=== PATIENT | female | born 1990 | race Two or more races ===

== ENCOUNTER 2017-06-21 22:56 | Emergency (ER) | payer OTHER ==
[2017-06-21 23:04] VITALS: BMI 30.5
--- NOTE | 2017-06-22 02:06 | PDOC ---
History of Present Illness - General History Source: Patient Exam Limitations: No Limitations - History of Present Illness Initial Comments: 06/22/17 02:13 The patient is a 27 year old female with significant past medical history of prior ectopic who presents to the ED for less than 24 hours of epigastric and right upper quadrant pain. Patient describes her pain as nonradiating, sharp colicky, and intermittent every 30 minutes. States she developed pain around 4- 5am this morning. Patient reports associated chills, decreased appetite and nausea, but no vomiting. No change in stool. The patient denies fever, cough, SOB, chest pain, and palpitations. The patient denies dysuria, hematuria, urgency, and frequency. Allergies: NKDA Social History: No alcohol, tobacco, or drug use reported. Past Surgical History: oophorectomy PCP: n/a <Joanne Garcia - Last Filed: 06/22/17 06:59> - General History Source: Patient Exam Limitations: No Limitations <Indy Rolon - Last Filed: 06/22/17 07:10> - General Chief Complaint: Pain Stated Complaint: STOMACH PAIN Past History <Joanne Garcia - Last Filed: 06/22/17 06:59> - Past Medical History Other medical history: denies - Reproductive History (#): 2 Para: 0 Therapeutic (s) & number: No Spontaneous : 1 - Psycho/Social/Smoking Cessation Hx Anxiety: No Suicidal Ideation: No Smoking History: Never smoked Have you smoked in the past 12 months: No Hx Alcohol Use: Yes (social) Substance Use Type: Alcohol <Indy Rolon - Last Filed: 06/22/17 07:10> - Past Medical History Allergies/Adverse Reactions: Allergies Allergy/AdvReac Type Severity Reaction Status Date / Time No Known Allergies Allergy Verified 06/21/17 23:03 Home Medications: Ambulatory Orders Ciprofloxacin [Cipro -] 500 mg PO Q12H #14 tablet 06/22/17 Metronidazole [Flagyl -] 500 mg PO BID #14 tablet 06/22/17 Abd/GI Specific PMHX - Complaint Specific PMHX Diverticulitis: No Gall Bladder Disease: No GERD: No <Indy Rolon - Last Filed: 06/22/17 07:10> Review of Systems - Review of Systems Able to Perform ROS?: Yes Comments:: 06/22/17 02:13 GENERAL/CONSTITUTIONAL: +decreased appetite, chills No fever. No weakness. HEAD, EYES, EARS, NOSE AND THROAT: No change in vision. No ear pain or discharge. No sore throat. CARDIOVASCULAR: No chest pain or shortness of breath. RESPIRATORY: No cough, wheezing, or hemoptysis. GASTROINTESTINAL: +right upper quadrant pain, epigastric pain, nausea No vomiting, diarrhea or constipation. GENITOURINARY: No dysuria, frequency, or change in urination. MUSCULOSKELETAL: No joint or muscle swelling or pain. No neck or back pain. SKIN: No rash NEUROLOGIC: No headache, vertigo, loss of consciousness, or change in strength/ sensation. ENDOCRINE: No increased thirst. No abnormal weight change. HEMATOLOGIC/LYMPHATIC: No anemia, easy bleeding, or history of blood clots. ALLERGIC/IMMUNOLOGIC: No hives or skin allergy. <JoseJoanne - Last Filed: 06/22/17 06:59> *Physical Exam - Vital Signs Last Vital Signs Temp Pulse Resp BP Pulse Ox 98.9 F 114 H 20 138/83 99 06/21/17 23:01 06/21/17 23:01 06/21/17 23:01 06/21/17 23:01 06/21/17 23:01 - Physical Exam Comments: 06/22/17 02:14 GENERAL: Awake, alert, and fully oriented, in no acute distress HEAD: No signs of trauma EYES: PERRLA, EOMI, sclera anicteric, conjunctiva clear ENT: Auricles normal inspection, hearing grossly normal, nares patent, oropharynx clear without exudates. Moist mucosa NECK: Normal ROM, supple, no lymphadenopathy, JVD, or masses LUNGS: Breath sounds equal, clear to auscultation bilaterally. No wheezes, and no crackles HEART: Regular rate and rhythm, normal S1 and S2, no murmurs, rubs or gallops ABDOMEN: Soft, right upper quadrant tenderness, epigastric tenderness, normoactive bowel sounds. No guarding, no rebound. No masses EXTREMITIES: Normal range of motion, no edema. No clubbing or cyanosis. No cords, erythema, or tenderness NEUROLOGICAL: Cranial nerves II through XII grossly intact. Normal speech, normal gait SKIN: Warm, Dry, normal turgor, no rashes or lesions noted. <Joanne Garcia - Last Filed: 06/22/17 06:59> - Vital Signs Last Vital Signs Temp Pulse Resp BP Pulse Ox 98.9 F 114 H 20 138/83 99 06/21/17 23:01 06/21/17 23:01 06/21/17 23:01 06/21/17 23:01 06/21/17 23:01 <RosalbamanuelIndy - Last Filed: 06/22/17 07:10> Procedures - Bedside Ultrasound Bedside Ultrasound: Gallbladder Other: see [facility] for report <Indy Rolon - Last Filed: 06/22/17 07:10> ED Treatment Course - LABORATORY CBC & Chemistry Diagram: 06/22/17 02:25 06/22/17 02:25 - RADIOLOGY Radiograph Interpretation: 06/22/17 06:59 HISTORY:Abdominal pain and vomiting Reviewed by Imaging irrigation engineer: FINDINGS: Abdomen Liver: Normal Spleen: Normal Pancreas: Normal Gallbladder: Normal Stomach: Normal Small bowel: Normal Large bowel: There is segmental thickening of the cecum and proximal colon. Appendix: Normal Adrenals:Normal Kidneys: Normal Vascular: Normal Lymphatic: There are enlarged lymph nodes in the right lower quadrant mesenteric. The largest measures 1.5x 1.0 cm Peritoneal: No free peritoneal air or fluid Pelvis: Uterus: normal Rectum: Normal Bladder: Normal The inferior thorax: Normal General: Skeletal: Normal Abdominal wall: Normal IMPRESSION: Proximal colonic thickening suggesting colitis. <Joanne Garcia - Last Filed: 06/22/17 06:59> - LABORATORY CBC & Chemistry Diagram: 06/22/17 02:25 06/22/17 02:25 <RosalbamanuelIndy - Last Filed: 06/22/17 07:10> Medical Decision Making - Medical Decision Making 06/22/17 02:04 27 yo F with epigastric pain, started 4 am. no mod factors. sharp colicky. hasn' t been able to eat due to pain. no f, reports chills. no radiation. nourinary complaints. no change to stool. on exam awake alert lungs clear. heart rrr nomrg. abd soft, ruq, epigastric ttp. no rebound no guarding. no cva tenderness. ext wwp no edema. no calf tenderness. plan : differential pancreatitis, biliary colic, gastritis, gerd. plan labs antacid. bedside us. 06/22/17 04:35 focused ED ultrasound gallbladdder, indication : epigastric pain. gallbladder scanned in two planes with curvilinear probe. no wall thickening or edema. negative sonographic vega's. no pericholecystic fluid. contracted gallbladder noted. cbd normal at 2mm. wall measured 3.9 mm, contracted. impression: contracted gallbladder. rafa/ sonny 06/22/17 06:04 <Indy Rolon - Last Filed: 06/22/17 07:10> *DC/Admit/Observation/Transfer - Attestations Scribe Attestion: 06/22/17 02:15 Documentation prepared by Joanne Garcia, acting as director medical safety for Indy Rolon MD <Joanne Garcia - Last Filed: 06/22/17 06:59> <Indy Rolon - Last Filed: 06/22/17 07:10> Diagnosis at time of Disposition: Colitis - Discharge Dispostion Disposition: HOME Condition at time of disposition: Improved - Prescriptions Prescriptions: Ciprofloxacin [Cipro -] 500 mg PO Q12H #14 tablet Metronidazole [Flagyl -] 500 mg PO BID #14 tablet - Referrals Referrals: STAFF,NOT ON [Primary Care Provider] - Kai Oliver DO [Staff Physician] - - Patient Instructions Printed Discharge Instructions: DI for Colitis Additional Instructions: you have inflammation of your colon on ct scan. take ciprofloxacin 500 mg twice daily x 7 days. you should also take flagyl 500 mg twice daily x 7 dyas. you should also follow up with a oil distributor. call Dr Ashre ( number attached ) to schedule. return for severe worsening pain fever or any concerns.
[2017-06-22] MEDS ORDERED: MAG HYDROX/AL HYDROX/SIMETH 30 ML UNIT-DOSE CUP PO ONE (02:07)
[2017-06-22] MEDS ORDERED: FAMOTIDINE 20 MG/50 ML IVPB 50 ML IVPB ONE ×2 (02:07→02:26)
[2017-06-22 02:22] LABS: URINE APPEARANCE SLCLOUDY; URINE BILIRUBIN NEGATIVE (NEGATIVE); URINE BLOOD 1+ (NEGATIVE); URINE COLOR AMBER; URINE GLUCOSE (UA) NEGATIVE (NEGATIVE); URINE KETONE NEGATIVE (NEGATIVE); URINE LEUK ESTERASE TRACE (NEGATIVE); URINE NITRITE NEGATIVE (NEGATIVE)
[2017-06-22] MEDS ORDERED: MAG HYDROX/AL HYDROX/SIMETH 30 ML UNIT-DOSE CUP ONE (02:26)
[2017-06-22 02:27] LABS: URINE PROTEIN 1+ (NEGATIVE)
[2017-06-22 02:28] LABS: URINE MUCUS MANY; URINE RBC 4 /hpf (0-3); URINE WBC 6 /hpf (3-5)
[2017-06-22 02:33] LABS: BASOPHIL 0.4 % (0-2.0); EOSINOPHIL 0.8 % (0-4.5); MCH 29.7 pg (25.7-33.7); MCHC 33.9 g/dl (32.0-36.0); MEAN CELL VOLUME 87.8 fl (80-96); MEAN PLT VOLUME 7.8 fl (7.5-11.1); NEUTROPHILS 65.6 % (42.8-82.8); PLATELET COUNT 244 K/MM3 (134-434); RDW 14.3 % (11.6-15.6)
[2017-06-22 05:42] VITALS: TEMP 98.2
[2017-06-22 06:06] LABS: ALBUMIN 3.7 g/dl (3.4-5.0); ANION GAP 8 (8-16); BILIRUBIN,TOTAL 0.4 mg/dL (0.2-1.0); CALCIUM 8.8 mg/dL (8.5-10.1); CO2 26 mmol/L (21-32); CREATININE 0.7 mg/dL (0.55-1.02); GLUCOSE,RANDOM 105 mg/dL (74-106); SGOT/AST 43 U/L (15-37); SGPT/ALT 40 U/L (12-78); TOT PROT 7.9 g/dl (6.4-8.2)
[2017-06-22 06:07] LABS: ALK PHOS 76 U/L (45-117)
[2017-06-22] MEDS ORDERED: CIPROFLOXACIN 500 MG TABLET (RESTRICTED TO ID) PO ONE (07:04)
[2017-06-22] MEDS ORDERED: metroNIDAZOLE 250 MG TABLET PO ONE (07:04)
[2017-06-22] MEDS ORDERED: metroNIDAZOLE 250 MG TABLET ONE (07:31)
[2017-06-22 07:54] VITALS: BP 138/92; PULSE 72
== END 2017-06-22 07:50 | disposition home or self-care (01) ==
LOC: JER 22:56
PROC: 3E033GC Introduction of Other Therapeutic Substance into Peripheral Vein, Percutaneous Approach (ICD-10-PCS; principal; 2017-06-21)
DX: K52.9 Noninfective gastroenteritis and colitis, unspecified (principal)
CPT/HCPCS: 36415; 74177-TC; 80053; 81003; 81015; 83690; 84703; 85025; 96365; 99282-25; Q9967

== ENCOUNTER 2018-09-02 07:39 | Emergency (ER) | payer OTHER ==
--- NOTE | 2018-09-02 07:57 | PDOC ---
History of Present Illness - General History Source: Patient Exam Limitations: No Limitations - History of Present Illness Initial Comments: 09/02/18 09:36 The patient is a 28 yo F, G3A2, with a significant past medical history of 1 ectopic and 1 miscarriage, who presents to the ED with light vaginal spotting this morning with a positive at-home test. She states she is about 7 weeks pregnanyt with her LMP being 07/09/18. She reports some mild associated pelvic cramping which she describes as "period cramps." She reportedly passed one red blood clot vaginally while in the ED. She denies any increased pain. She denies radiation of pain. 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 She denies fevers, chills, n/v/d. She denies chest pain, headache, dizziness, lightheadedness, or fatigue. She denies changes in urination. She denies any recent illnesses or traumas. Allergies: NKDA <Diya Rodriguez - Last Filed: 09/02/18 12:04> - History of Present Illness Initial Comments: 09/02/18 08:42 28 G3A2, 1 ectopic, 1 miscarrige, 7 wks , just by home test. <Seven Nair - Last Filed: 09/02/18 12:16> - General Chief Complaint: Vaginal Bleeding Stated Complaint: 7 WKS,BLEEDING Time Seen by Provider: 09/02/18 07:56 Past History <Diya Rodriguez - Last Filed: 09/02/18 12:04> - Past Medical History COPD: No - Reproductive History (#): 2 Para: 0 Therapeutic (s) & number: No Spontaneous : 1 - Immunization History Immunization Up to Date: Yes - Suicide/Smoking/Psychosocial Hx Smoking History: Never smoked Have you smoked in the past 12 months: No Hx Alcohol Use: No Drug/Substance Use Hx: No Substance Use Type: Alcohol <Seven Nair - Last Filed: 09/02/18 12:16> - Past Medical History Allergies/Adverse Reactions: Allergies Allergy/AdvReac Type Severity Reaction Status Date / Time No Known Allergies Allergy Verified 09/02/18 07:49 Home Medications: Ambulatory Orders Prenat 115/Iron Fum/Folic/Dss [ 19 Tablet] 1 each PO DAILY 09/02/18 Review of Systems - Review of Systems Able to Perform ROS?: Yes Comments:: 09/02/18 09:40 Constitutional: No recent illness; no fever ENT: No sore throat Cardiovascular: No palpitations; no chest pain Pulmonary: No cough; no trouble breathing Gastrointestinal: No nausea; no vomiting; no diarrhea Genitourinary: No urinary problems; no hematuria Reproductive: (+) vaginal bleeding in . mild pelvic cramping. Skin: No rash Lymph system: No swollen glands Musculoskeletal: No joint swelling Neurological: No weakness; oo numbness; No Headache; no vertigo; no lightheadedness Psychiatric:No anxiety; no depression A complete review of 10 out of 10 review of systems is taken and is negative apart from what is previously mentioned below and in the HPI. <Diya Rodriguez - Last Filed: 09/02/18 12:04> *Physical Exam - Vital Signs Last Vital Signs Temp Pulse Resp BP Pulse Ox 98.1 F 87 16 135/86 100 09/02/18 07:50 09/02/18 07:50 09/02/18 07:50 09/02/18 07:50 09/02/18 07:50 - Physical Exam Comments: 09/02/18 09:40 Vitals: Triage vital signs reviewed General Appearance: No acute distress, well nourished, well developed Head: Atraumatic Eyes: Pupils equal reactive round, extraocular movement intact Neck: Supple; No nuchal rigidity Chest Wall: Nontender Cardiac: Regular rate and rhythm, no murmurs, no rubs, no gallops Lungs: Clear to auscultation bilateral, good air movement bilaterally Abdomen: Soft, nondistended, normal bowel sounds, nontender to palpation Pelvic: No CMT. No adnexal tenderness. blood in vaginal vault. Extremities: Full range of motion to all extremities, no cyanosis, clubbing, or edema Skin: Warm and dry, no rashes or lesions, no rash, no petechiae Neuro: AOX3; Cranial Nerves 2-12 grossly intact, Strength intact to all extremities, Sensation intact to all extremities, gait normal Psych: Normal mood, normal affect <Diya Rodriguez - Last Filed: 09/02/18 12:04> - Vital Signs Last Vital Signs Temp Pulse Resp BP Pulse Ox 98.1 F 87 16 135/86 100 09/02/18 07:50 09/02/18 07:50 09/02/18 07:50 09/02/18 07:50 09/02/18 07:50 <Seven Nair - Last Filed: 09/02/18 12:16> ED Treatment Course - LABORATORY CBC & Chemistry Diagram: 09/02/18 08:31 09/02/18 08:31 - ADDITIONAL ORDERS Additional order review: Laboratory Results 09/02/18 08:31 Sodium 137 Potassium 4.1 Chloride 102 Carbon Dioxide 25 Anion Gap 9 BUN 8 Creatinine 0.7 Creat Clearance w eGFR > 60 Random Glucose 125 H Calcium 9.0 Total Bilirubin 0.5 AST 74 H ALT 64 H Alkaline Phosphatase 65 Total Protein 7.8 Albumin 3.7 09/02/18 08:31 RBC 4.14 MCV 90.5 MCHC 35.9 RDW 13.5 MPV 7.6 Neutrophils % 68.6 Lymphocytes % 25.2 Monocytes % 4.5 Eosinophils % 1.2 Basophils % 0.5 - RADIOLOGY Radiograph Interpretation: EXAM#: TYPE/EXAM: RESULT: [id number] US/TRANSVAGINAL ULTRASOUND US Rule out ectopic . Pelvis ultrasound, transvesical and transvaginal LMP is 07/09/2028 The uterus measures 8.6 x 4.6 cm in sagittal and AP dimension. Endometrial stripe measures 9.5 mm in thickness. There is a small intrauterine gestational sac like structure seen at the junction of the lower uterine segment and the cervical canal measuring with a questionable pole seen compatible with in progress. The crown-rump length measures 7 mm compatible with 6 weeks 4 days of gestation. Gestational sac measured 1.7 x 0.7 x 0.6 cm. The right ovary measures 3.7 x 2.6 cm and appears unremarkable with normal vascular flow, arterial and venous. Normal-appearing left ovary measuring 3.3 x 2.7 cm with a simple cyst/dominant follicle/corpus luteum cyst measuring 1.2 x 1.1 cm and normal vascular flow, arterial and venous No gross adnexal mass is identified. There is no free fluid in the cul-de-sac. IMPRESSION: Intrauterine gestational sac like structure in the lower uterine segment and cervical canal measuring 1.7 x 0.7 x 0.6 cm with a possible pole consistent with in progress. Worden-rump length of the possible pole is compatible with 6 weeks 4 days of gestation. heart activity of the possible pole was not evaluated on this exam. Both ovaries appear unremarkable. Correlate clinically and close follow-up ultrasound is recommended. Reported By: Bhavya James MD 09/02/18 1200 <Diya Rodriguez - Last Filed: 09/02/18 12:04> - LABORATORY CBC & Chemistry Diagram: 09/02/18 08:31 09/02/18 08:31 <Seven Nair - Last Filed: 09/02/18 12:16> Medical Decision Making - Medical Decision Making 09/02/18 12:15 First trimester bleeding Ultrasound labs type and screen ordered On ultrasound intrauterine gestational sac like structure in the lower uterine segment cervical canal with possible pole consistent with in progress Patient is Rh+. Most likely diagnosis is miscarriage at this time we'll have patient follow up with her LOCAL COMBINATION TRUCK DRIVER in 1-2 days or return to the emergency department in 1-2 days. <Seven Nair - Last Filed: 09/02/18 12:16> *DC/Admit/Observation/Transfer - Attestations Scribe Attestion: 09/02/18 09:41 Documentation prepared by Diya Rodriguez, acting as medical insurance clerk for Seven Nair MD <Diya Rodriguez - Last Filed: 09/02/18 12:04> - Discharge Dispostion Decision to Admit order: No <Seven Nair - Last Filed: 09/02/18 12:16> Diagnosis at time of Disposition: Spontaneous - Discharge Dispostion Disposition: HOME Condition at time of disposition: Good - Referrals Referrals: Anuj Daniels MD [Staff Physician] - - Patient Instructions Printed Discharge Instructions: Dealing With Miscarriage, Miscarriage Additional Instructions: Follow-up with your LOCAL COMBINATION TRUCK DRIVER or Dr. Daniels in 2 days. Return to the emergency department for any severe heavy bleeding, severe abdominal pain or for any concerns.
[2018-09-02 07:59] VITALS: BMI 34.0
[2018-09-02 08:44] LABS: BASO % 0.5 % (0-2.0); EOS % 1.2 % (0-4.5); HEMATOCRIT 37.5 % (32.4-45.2); HEMOGLOBIN 13.4 GM/dL (10.7-15.3); LYMPH % 25.2 % (8-40); MCH 32.4 pg (25.7-33.7); MCHC 35.9 g/dl (32.0-36.0); MEAN CELL VOLUME 90.5 fl (80-96); MEAN PLT VOLUME 7.6 fl (7.5-11.1); MONO % 4.5 % (3.8-10.2); NEUT % 68.6 % (42.8-82.8); PLATELET COUNT 241 K/MM3 (134-434); RBC 4.14 M/mm3 (3.60-5.2); RDW 13.5 % (11.6-15.6); WHITE BLOOD COUNT 7.6 K/mm3 (4.0-10.0)
[2018-09-02 09:35] LABS: ALBUMIN 3.7 g/dl (3.4-5.0); ALK PHOS 65 U/L (45-117); ANION GAP 9 MMOL/L (8-16); BILIRUBIN,TOTAL 0.5 mg/dL (0.2-1); BLOOD UREA NITROGEN 8 mg/dL (7-18); CHLORIDE 102 mmol/L (98-107); CO2 25 mmol/L (21-32); CREATININE 0.7 mg/dL (0.55-1.3); GLUCOSE,RANDOM 125 mg/dL (74-106); POTASSIUM 4.1 mmol/L (3.5-5.1); SGOT/AST 74 U/L (15-37); SGPT/ALT 64 U/L (13-61); SODIUM 137 mmol/L (136-145); TOT PROT 7.8 g/dl (6.4-8.2)
[2018-09-02 10:41] LABS: URINE APPEARANCE TURBID; URINE BILIRUBIN NEGATIVE (<2.0 mg/dL); URINE COLOR RED; URINE GLUCOSE (UA) 1+ (NEGATIVE); URINE KETONE NEGATIVE (NEGATIVE); URINE LEUK ESTERASE NEGATIVE (NEGATIVE); URINE NITRITE NEGATIVE (NEGATIVE); URINE PROTEIN 2+ (NEGATIVE); URINE UROBILINOGEN NEGATIVE mg/dL (0.2-1.0)
[2018-09-02 11:25] VITALS: BP 119/69; PULSE 70; TEMP 99.4
[2018-09-02 11:50] LABS: EPI CELLS RARE /HPF (FEW); URINE MUCUS FEW
== END 2018-09-02 12:45 | disposition home or self-care (01) ==
LOC: JER 07:39
DX: O03.9 Complete or unspecified spontaneous abortion without complication (principal)
CPT/HCPCS: 36415; 76830-TC; 80053; 81003; 81015; 84702; 85025; 86850; 86900; 86901; 99283-25

== ENCOUNTER 2019-06-27 20:27 | Emergency (ER) | payer OTHER ==
[2019-06-27 20:32] VITALS: PULSE 79; BMI 31.1
--- NOTE | 2019-06-27 20:33 | PDOC ---
Rapid Medical Evaluation Time Seen by Provider: 06/27/19 20:30 Medical Evaluation: Allergies Allergy/AdvReac Type Severity Reaction Status Date / Time No Known Allergies Allergy Verified 09/02/18 07:49 06/27/19 20:30 I have performed a brief in-person evaluation of this patient. The patient presents with a chief complaint of: 3 weeks F w/ 1 day of Diffuse lower abdominal pain and vaginal spotting. [id number] (1 ectopic 9yrs ago) . LMP unsure, irregular cycle I have ordered the following: CBC, CMP, type and screen, UA, Ucx, TVS The patient will proceed to the ED for further evaluation. Discharge Disposition - Diagnosis Threatened - Referrals - Patient Instructions - Post Discharge Activity
[2019-06-27 21:14] LABS: BASO % 0.4 % (0-2.0); HEMATOCRIT 37.3 % (32.4-45.2); HEMOGLOBIN 12.8 GM/dL (10.7-15.3); LYMPH % 26.4 % (8-40); MCHC 34.3 g/dl (32.0-36.0); MEAN CELL VOLUME 90.2 fl (80-96); MEAN PLT VOLUME 7.9 fl (7.5-11.1); MONO % 5.6 % (3.8-10.2); NEUT % 66.6 % (42.8-82.8); PLATELET COUNT 287 K/MM3 (134-434); RBC 4.13 M/mm3 (3.60-5.2); RDW 13.4 % (11.6-15.6); WHITE BLOOD COUNT 9.2 K/mm3 (4.0-10.0)
[2019-06-27 21:29] LABS: INR 1.03 (0.83-1.09); PROTHROMBIN TIME (PATIENT) 12.1 SEC (9.7-13.0)
[2019-06-27 21:37] LABS: EPI CELLS 4.5 /HPF (0-5/HPF); HYALINE CASTS 9 /lpf (0-8); PH,URINE 7.5 (5.0-8.0); URINE APPEARANCE CLEAR; URINE BACTERIA 121.9 /hpf (NEGATIVE); URINE BILIRUBIN NEGATIVE (NEGATIVE); URINE COLOR YELLOW; URINE GLUCOSE (UA) NEGATIVE (NEGATIVE); URINE KETONE NEGATIVE (NEGATIVE); URINE LEUK ESTERASE TRACE (NEGATIVE); URINE NITRITE NEGATIVE (NEGATIVE); URINE PROTEIN NEGATIVE (NEGATIVE); URINE RBC 5 /hpf (0-4); URINE UROBILINOGEN 0.2 mg/dL (0.2-1.0); URINE WBC 4 /hpf (0-5)
[2019-06-27 22:07] LABS: ALBUMIN 3.8 g/dl (3.4-5.0); BILIRUBIN,TOTAL 0.4 mg/dL (0.2-1); BLOOD UREA NITROGEN 8.5 mg/dL (7-18); CALCIUM 9.4 mg/dL (8.5-10.1); CREATININE 0.7 mg/dL (0.55-1.3); POTASSIUM 4.3 mmol/L (3.5-5.1); TOT PROT 7.5 g/dl (6.4-8.2)
--- NOTE | 2019-06-27 22:34 | PDOC ---
Attending Attestation - Resident Resident Name: Kaylin Mendoza - ED Attending Attestation I have performed the following: I have examined & evaluated the patient, The case was reviewed & discussed with the resident, I agree w/resident's findings & plan - HPI HPI: 06/28/19 00:03 see resident hpi - Physicial Exam PE: 06/28/19 00:03 agree with resident exam - Medical Decision Making 06/28/19 00:03 29 yo female with intermittant pelvic pain , positive and history of ectopic US today shows no acute abnormality pt advised to follow up in 48 hours for repeat evaluation she has verbalized understanding and agrees with plan
--- NOTE | 2019-06-27 23:51 | PDOC ---
History of Present Illness - General Chief Complaint: Pain, Acute Stated Complaint: ABD PAIN/1 MO Time Seen by Provider: 06/27/19 20:30 - History of Present Illness Initial Comments: 06/27/19 23:46 THe patient is a 29 year old (2 SAB, 1 ectopic) at unknown gestation and oligomenorrhea who presents to our ED c/o abdominal pain and vaginal spotting. Patient states tonight around 7 p.m. she felt a sharp abdominal pain in her B/L lower abdomen. H/o ectopic as well as two spontaneous abortions. Evaluated by OB-Construction Controller (Dr. Garza) last week at which time B-HCG was 329. States she had a repeat B-HCG today but does not know the result. States she had some vaginal spotting last Wednesday, but it was only a few spots on a pantiliner. LMP was February and she has never been evaluated for her irregular periods. Denies fevers, nausea/vomiting, dysuria/hematuria. NKDA Surgical: Laprascopy (ectopic) Social: denies toxic habits OB-Construction Controller: Dr. Garza Past History - Past Medical History Allergies/Adverse Reactions: Allergies Allergy/AdvReac Type Severity Reaction Status Date / Time No Known Allergies Allergy Verified 06/27/19 20:33 Home Medications: Ambulatory Orders Prenat 115/Iron Fum/Folic/Dss [ 19 Tablet] 1 each PO DAILY 09/02/18 Cephalexin Monohydrate [Keflex -] 500 mg PO BID #14 capsule 06/28/19 COPD: No Other medical history: Ectopic x 9 years ago (2009) - Reproductive History (#): 2 Para: 0 Therapeutic (s) & number: No Spontaneous : 1 - Immunization History Immunization Up to Date: Yes - Suicide/Smoking/Psychosocial Hx Smoking History: Unknown if ever smoked Have you smoked in the past 12 months: No Information on smoking cessation initiated: Yes Hx Alcohol Use: No Drug/Substance Use Hx: No Substance Use Type: Alcohol Review of Systems - Review of Systems Constitutional: No: Chills, Fever Respiratory: No: Shortness of Breath Cardiac (ROS): No: Chest Pain ABD/GI: No: Constipated, Diarrhea, Nausea, Vomiting : Yes: Other (vaginal spotting). No: Burning, Hematuria *Physical Exam - Vital Signs Last Vital Signs Temp Pulse Resp BP Pulse Ox 98.0 F 79 16 149/89 100 06/27/19 20:31 06/27/19 20:31 06/27/19 20:31 06/27/19 20:31 06/27/19 20:31 - Physical Exam General Appearance: Yes: Nourished, Severe Distress HEENT: positive: Normal Voice, Hearing Grossly Normal Neck: positive: Trachea midline, Supple Female Pelvic Exam: positive: other (pelvic exam: cervical os closed with brown blood in vaginal vault ) Gastrointestinal/Abdominal: positive: Soft. negative: Rebound, Tenderness, Hernia, Mass Extremity: positive: Normal Capillary Refill, Normal Inspection Integumentary: positive: Normal Color, Dry, Warm Neurologic: positive: Fully Oriented, Alert ED Treatment Course - LABORATORY CBC & Chemistry Diagram: 06/27/19 20:55 06/27/19 20:55 - ADDITIONAL ORDERS Additional order review: Laboratory Results 06/27/19 06/27/19 06/27/19 20:55 20:55 20:55 PT with INR 12.10 INR 1.03 Sodium Potassium Chloride Carbon Dioxide Anion Gap BUN Creatinine Est GFR (CKD-EPI)AfAm Est GFR (CKD-EPI)NonAf Random Glucose Calcium Total Bilirubin AST ALT Alkaline Phosphatase Total Protein Albumin Beta HCG, Quant Urine Color Yellow Urine Appearance Clear Urine pH 7.5 D Ur Specific [place] 1.020 Urine Protein Negative Urine Glucose (UA) Negative Urine Ketones Negative Urine Blood 1+ H Urine Nitrite Negative Urine Bilirubin Negative Urine Urobilinogen 0.2 Ur Leukocyte Esterase Trace Urine WBC (Auto) 4 Urine RBC (Auto) 5 Urine Casts (Auto) 9 U Epithel Cells (Auto) 4.5 Urine Bacteria (Auto) 121.9 Urine HCG, Qual Blood Type O POSITIVE Antibody Screen Negative 06/27/19 06/27/19 20:55 20:55 PT with INR INR Sodium 144 Potassium 4.3 Chloride 106 Carbon Dioxide 25 Anion Gap 12 BUN 8.5 Creatinine 0.7 Est GFR (CKD-EPI)AfAm 134.75 Est GFR (CKD-EPI)NonAf 116.26 Random Glucose 113 H Calcium 9.4 Total Bilirubin 0.4 AST 44 H ALT 51 Alkaline Phosphatase 68 Total Protein 7.5 Albumin 3.8 Beta HCG, Quant 1228.2 Urine Color Urine Appearance Urine pH Ur Specific [place] Urine Protein Urine Glucose (UA) Urine Ketones Urine Blood Urine Nitrite Urine Bilirubin Urine Urobilinogen Ur Leukocyte Esterase Urine WBC (Auto) Urine RBC (Auto) Urine Casts (Auto) U Epithel Cells (Auto) Urine Bacteria (Auto) Urine HCG, Qual Positive Blood Type Antibody Screen 06/27/19 20:55 RBC 4.13 MCV 90.2 MCHC 34.3 RDW 13.4 MPV 7.9 Neutrophils % 66.6 Lymphocytes % 26.4 Monocytes % 5.6 Eosinophils % 1.0 Basophils % 0.4 Medical Decision Making - Medical Decision Making 06/27/19 23:51 29 y/o female at likely 14 weeks gestation based on LMP w/sharp abdominal pain + h/o recent vaginal spotting B-HCG 329 last week H/o Ectopic and 1st trimester SAB x2 VS unremarkable Will obtain TVUS to r/o ectopic , B-HCG, Pelvic exam 06/27/19 23:56 Pelvic exam shows closed cervical os with dark brown blood in vaginal vault UA shows 121 Bacteria - will treat for Asx bacteruria of with 7 day course of Keflex 06/27/19 23:57 B-HCG 1228 TVUS read as no intrauterine gestation/gestational sac visualized Will eligibility counselor patient she requires repeat TVUS and B-HCG in 48 hours. Return precautions and will f/u in ED or with Dr. Garza. Call order placed for f/u Asx bacteruria in urine Clinical Impression: (based on B-HCG) of unknown location I discussed the physical exam findings, ancillary test results and final diagnoses with the patient. I answered all of the patient's questions. The patient was satisfied with the care received and felt comfortable with the discharge plan and treatment plan. The patient will return to the Emergency Department with any new, persistent or worsening symptoms. 06/28/19 01:30 *DC/Admit/Observation/Transfer Diagnosis at time of Disposition: with history of spontaneous - Discharge Dispostion Disposition: HOME Condition at time of disposition: Good Decision to Admit order: No - Referrals Referrals: Arely Garcia MD [Primary Care Provider] - - Patient Instructions Printed Discharge Instructions: DI for Vaginal Bleeding Additional Instructions: You must follow-up in 48 hours for a repeat ultrasound. You can either come to the Emergency Department or see Dr. Garza. Return to the Emergency Department before that time for any new/worsening/ concerning symptoms including severe abdominal pain, vaginal bleeding, fevers. - Post Discharge Activity
[2019-06-28 00:53] VITALS: BP 132/73; TEMP 98.2
== END 2019-06-28 00:40 | disposition home or self-care (01) ==
LOC: JER 20:27
DX: O26.891 Other specified pregnancy related conditions, first trimester (principal); Z3A.14 14 weeks gestation of pregnancy
CPT/HCPCS: 36415; 76817-TC; 80053; 81003; 84702; 84703; 85025; 85610; 86850; 86900; 86901; 87086; 99283-25

== ENCOUNTER 2019-07-06 10:57 | Emergency (ER) | payer OTHER ==
[2019-07-06 11:06] VITALS: BMI 32.1
[2019-07-06] MEDS ORDERED: SODIUM CHLORIDE 500 ML IV ONE (11:18)
[2019-07-06 11:55] LABS: EPI CELLS 5.2 /HPF (0-5/HPF); HYALINE CASTS 8 /lpf (0-8); URINE APPEARANCE TURBID; URINE BACTERIA 116.2 /hpf (NEGATIVE); URINE BILIRUBIN NEGATIVE (NEGATIVE); URINE COLOR YELLOW; URINE GLUCOSE (UA) NEGATIVE (NEGATIVE); URINE KETONE NEGATIVE (NEGATIVE); URINE LEUK ESTERASE TRACE (NEGATIVE); URINE NITRITE NEGATIVE (NEGATIVE); URINE PROTEIN NEGATIVE (NEGATIVE); URINE RBC 2 /hpf (0-4); URINE WBC 4 /hpf (0-5)
[2019-07-06 11:58] LABS: BASO % 0.3 % (0-2.0); EOS % 0.6 % (0-4.5); HEMOGLOBIN 12.8 GM/dL (10.7-15.3); LYMPH % 26.3 % (8-40); MCH 31.3 pg (25.7-33.7); MCHC 34.6 g/dl (32.0-36.0); MEAN CELL VOLUME 90.4 fl (80-96); MEAN PLT VOLUME 7.9 fl (7.5-11.1); MONO % 3.3 % (3.8-10.2); NEUT % 69.5 % (42.8-82.8); PLATELET COUNT 244 K/MM3 (134-434); RBC 4.09 M/mm3 (3.60-5.2); RDW 13.8 % (11.6-15.6); WHITE BLOOD COUNT 7.7 K/mm3 (4.0-10.0)
[2019-07-06 12:11] LABS: INR 0.99 (0.83-1.09); PROTHROMBIN TIME (PATIENT) 11.7 SEC (9.7-13.0)
--- NOTE | 2019-07-06 12:24 | PDOC ---
History of Present Illness - General Chief Complaint: Abnormal Lab Results (Outside) Stated Complaint: SENT BY PCP Time Seen by Provider: 07/06/19 11:18 History Source: Patient, Primary Care Provider (Dr. Garcia called ahead) Exam Limitations: No Limitations - History of Present Illness Initial Comments: 07/06/19 12:18 29-year-old female (ectopic status post appendectomy, first and second trimester miscarriages) with history of irregular menses and LMP in February, recently discovered she was on 06/[address] Garcia as outpatient which recently noted inappropriate rise in beta hCG from 3977 to 4635, and with ultrasound performed Tuesday 07/03 suspicious for left- sided ectopic as no IUP was visualized. Referred today for repeat hCG and ultrasound. Patient was previously reporting some suprapubic discomfort when diagnosed with UTI, that pain has resolved since antibiotic course. No other pain, reports some dark discharge over the last 1-2 days but no red blood or passage of tissue , no flank pain, no fevers or chills. No GI complaints, no urinary complaints. This is a desired . Past History - Past Medical History Allergies/Adverse Reactions: Allergies Allergy/AdvReac Type Severity Reaction Status Date / Time No Known Allergies Allergy Verified 07/06/19 11:03 Home Medications: Ambulatory Orders Prenat 115/Iron Fum/Folic/Dss [ 19 Tablet] 1 each PO DAILY 09/02/18 COPD: No - Reproductive History Is Patient Now?: Yes (#): 4 Para: 0 Therapeutic (s) & number: No Spontaneous : 1 - Immunization History Immunization Up to Date: Yes - Suicide/Smoking/Psychosocial Hx Smoking History: Never smoked Have you smoked in the past 12 months: No Hx Alcohol Use: No Drug/Substance Use Hx: No Substance Use Type: Alcohol Review of Systems - Review of Systems Constitutional: No: Chills, Fever, Night Sweats Respiratory: No: Cough, Shortness of Breath Cardiac (ROS): No: Chest Pain ABD/GI: No: Constipated, Diarrhea, Nausea, Vomiting : Yes: See HPI. No: Dysuria, Flank Pain, Incontinence All Other Systems: Reviewed and Negative *Physical Exam - Vital Signs Last Vital Signs Temp Pulse Resp BP Pulse Ox 97.7 F 82 18 128/73 98 07/06/19 11:03 07/06/19 11:03 07/06/19 11:03 07/06/19 11:03 07/06/19 11:03 - Physical Exam Comments: 07/06/19 12:21 Vital signs stable. GENERAL: The patient is awake, alert, and fully oriented, in no acute distress seated in chair. HEAD: Normal with no signs of trauma. EYES: PERRL, EOMI, conjunctiva clear with no pallor. ENT: oropharynx clear. Moist mucous membranes. NECK: Normal range of motion, supple. LUNGS: [Breath sounds equal, clear to auscultation bilaterally. No wheeze/ crackles. HEART: Regular rate and rhythm, normal S1 and S2 without murmur or rub. ABDOMEN: Soft/nontender/nondistended. BS wnl. No LLQ/L pelvic ttp, no guarding or rebound. No palpable masses. No hepatosplenomegaly. No CVAT. EXTREMITIES: Normal range of motion, no edema. 2+ distal pulses. No cords, erythema, or tenderness. NEUROLOGICAL: Cranial nerves II through XII grossly intact. Normal speech, normal gait. PSYCH: Normal mood, normal affect. SKIN: Warm, Dry, no rashes or lesions noted. ED Treatment Course - LABORATORY CBC & Chemistry Diagram: 07/06/19 11:35 - ADDITIONAL ORDERS Additional order review: Laboratory Results 07/06/19 07/06/19 07/06/19 11:35 11:35 11:35 PT with INR 11.70 INR 0.99 Urine Color Yellow Urine Appearance Turbid Urine pH 5.0 D Ur Specific [place] 1.036 H Urine Protein Negative Urine Glucose (UA) Negative Urine Ketones Negative Urine Blood Trace Urine Nitrite Negative Urine Bilirubin Negative Urine Urobilinogen 1.0 Ur Leukocyte Esterase Trace Urine WBC (Auto) 4 Urine RBC (Auto) 2 Urine Casts (Auto) 8 U Epithel Cells (Auto) 5.2 Urine Bacteria (Auto) 116.2 Urine HCG, Qual Positive 07/06/19 11:35 RBC 4.09 MCV 90.4 MCHC 34.6 RDW 13.8 MPV 7.9 Neutrophils % 69.5 Lymphocytes % 26.3 Monocytes % 3.3 L Eosinophils % 0.6 Basophils % 0.3 - RADIOLOGY Radiology Studies Ordered: Category Date Time Status TRANSVAGINAL US PREG [US] Stat Ultrasound 07/06/19 11:18 Ordered - Medications Given in the ED: ED Medications Discontinued Medications Generic Name Dose Route Start Last Admin Trade Name Lorena PRN Reason Stop Dose Admin Sodium Chloride 500 mls @ 500 mls/hr 07/06/19 11:18 07/06/19 11:48 Normal Saline - IV 07/06/19 12:17 500 mls/hr ONCE ONE Administration Medical Decision Making - Medical Decision Making 07/06/19 12:23 29y/o F known with suspicion for possible ectopic, sent to repeat HCG/ ultrasound. HD stable here with benign abd exam, no peritoneal findings repeat HCG and TVUS if ectopic, will discuss with Dr. Garcia but plan would be for methotrexate and outpt f/u. dispo per findings. has no pain at this time, no indication for meds 07/06/19 14:04 u/s more suspicious for L ectopic, no pole identified and still no IUP with HCG 5600. confirmed O positive. still asx. Discussed with Dr. Garcia: dose of methotrexate 50/m2 now then f/u in office Wednesday for repeat HCG testing. Pt agrees, understands return criteria. *DC/Admit/Observation/Transfer Diagnosis at time of Disposition: First trimester Ectopic Qualifiers: Location of ectopic : ovarian Intrauterine status: without intrauterine Laterality: left Qualified Code(s): O00.202 - Left ovarian without intrauterine - Discharge Dispostion Disposition: HOME Condition at time of disposition: Stable - Referrals Referrals: Brent Sosa [Primary Care Provider] - Arely Garcia MD [Staff Physician] - - Patient Instructions Printed Discharge Instructions: DI for Ectopic , Methotrexate Injection, Methotrexate Additional Instructions: Activity as tolerated. Stay hydrated. Blood tests and an ultrasound today confirmed an ectopic on the Left. As discussed with Dr. Garcia, you were given a dose of methotrexate to treat the ectopic . Tylenol 1000 mg every 8 hours as needed for pain. Repeat blood tests are needed to make sure the methotrexate had the proper effect. Follow up in Dr. Garcia's office on Wednesday - call tomorrow to confirm. Continue your medications as previously prescribed by your physician. You should follow up with Dr. Garcia as soon as possible regarding today's emergency department visit. Return to the emergency department for any new or concerning symptoms, particularly systemic symptoms of fever/chills/rash, severe or persistent pain or bleeding, weakness. - Post Discharge Activity
[2019-07-06] MEDS ORDERED: METHOTREXATE SODIUM/PF 25 MG/ML VIAL IM ONE (13:15)
[2019-07-06 15:51] VITALS: BP 126/78; PULSE 88; TEMP 98.5
== END 2019-07-06 15:51 | disposition home or self-care (01) ==
LOC: JER 10:57
PROC: 3E023GC Introduction of Other Therapeutic Substance into Muscle, Percutaneous Approach (ICD-10-PCS; principal; 2019-07-06)
PROC: 3E0337Z Introduction of Electrolytic and Water Balance Substance into Peripheral Vein, Percutaneous Approach (ICD-10-PCS; 2019-07-06)
DX: O00.202 Left ovarian pregnancy without intrauterine pregnancy (principal); O26.891 Other specified pregnancy related conditions, first trimester; Z3A.01 Less than 8 weeks gestation of pregnancy
CPT/HCPCS: 36415; 76817-TC; 81003; 84702; 84703; 85025; 85610; 86850; 86900; 86901; 99282-25; J9260

== ENCOUNTER 2019-07-14 10:41 | Emergency (ER) | payer OTHER ==
--- NOTE | 2019-07-14 11:08 | PDOC ---
Rapid Medical Evaluation Medical Evaluation: Allergies Allergy/AdvReac Type Severity Reaction Status Date / Time No Known Allergies Allergy Verified 07/06/19 11:03 I have performed a brief in-person evaluation of this patient. The patient presents with a chief complaint of: here with LLQ abd pain; seen last week and dx with ectopic , given shot of methotrexate; saw OB /WILDLIFE ECOLOGIST yesterday, Dr. Ramos and cg had increased but didnt receive another shot of methotrexate; denies vaginal bleeding Pertinent physical exam findings: In NAD, pelvic deferred I have ordered the following: Bhcg, pelvic US The patient will proceed to the ED for further evaluation. 07/14/19 11:06
[2019-07-14 11:11] VITALS: BP 123/78; PULSE 83; TEMP 98.2; BMI 31.4
--- NOTE | 2019-07-14 11:44 | PDOC ---
History of Present Illness - General History Source: Patient Exam Limitations: No Limitations - History of Present Illness Initial Comments: 07/14/19 11:39 CHIEF COMPLAINT: Abdominal pain HISTORY OF PRESENT ILLNESS: This is a 29-year-old female a2 with one ectopic 9 years ago (right fallopian tube removed) and again at ED visit on 07/06 , when she was given one dose methotrexate. Bhcg at that visit was 5609. At followup outpatient visit on 07/12, bhcg was 5914 and on 07/13 was 6290. She presents today with pelvic pain, L>R. She had some scant vaginal bleeding initially after the methotrexate on 07/06, but none since. Vital signs on arrival are all within normal limits. Ob: Dr. Ramos REVIEW OF SYSTEMS: GENERAL/CONSTITUTIONAL: No fever or chills. No weakness. No weight change. HEAD, EYES, EARS, NOSE AND THROAT: No change in vision. No ear pain or discharge. No sore throat. CARDIOVASCULAR: No chest pain or palpitations. RESPIRATORY: No cough, wheezing, or shortness of breath. GASTROINTESTINAL: No nausea, vomiting, diarrhea, or constipation. GENITOURINARY: See HPI. MUSCULOSKELETAL: No joint or muscle swelling or pain. No neck or back pain. SKIN: No rash or easy bruising. NEUROLOGIC: No headache, vertigo, loss of consciousness, or loss of sensation. PSYCHIATRIC: No depression or anxiety. ENDOCRINE: No increased thirst. No abnormal weight change. HEMATOLOGIC/LYMPHATIC: No anemia, easy bleeding, or history of blood clots. ALLERGIC/IMMUNOLOGIC: No hives or skin allergy. No latex allergy. PHYSICAL EXAM: GENERAL: The patient is awake, alert, and fully oriented, in no acute distress. HEAD: Normal with no signs of trauma. ENT: Pupils equal, round and reactive to light, extraocular movements intact, sclera anicteric, conjunctiva clear. Neck supple. LUNGS: Clear to auscultation bilaterally. Normal excursion. No respiratory distress or use of accessory muscles. CV: RRR, S1/S2, no MRG. Cap refill < 2 sec. ABDOMEN: Soft, non-tender, non-distended. EXTREMITIES: Normal range of motion, no edema. NEUROLOGICAL: Normal speech, normal gait. CN II-XII grossly intact. PSYCH: Normal mood, normal affect. SKIN: Warm, dry, normal turgor, no rashes or lesions noted. <Marjorie Manzano - Last Filed: 07/14/19 16:13> <Mahnaz Martinez - Last Filed: 07/14/19 17:59> - General Chief Complaint: Pain Stated Complaint: ABD PAIN Time Seen by Provider: 07/14/19 11:06 Past History - Past Medical History COPD: No - Reproductive History (#): 4 Para: 0 Therapeutic (s) & number: No Spontaneous : 1 - Immunization History Immunization Up to Date: Yes - Suicide/Smoking/Psychosocial Hx Smoking History: Never smoked Have you smoked in the past 12 months: No Information on smoking cessation initiated: No Hx Alcohol Use: No Drug/Substance Use Hx: No Substance Use Type: Alcohol <NatachaMarjorie anders - Last Filed: 07/14/19 16:13> <Mahnaz Martinez - Last Filed: 07/14/19 17:59> - Past Medical History Allergies/Adverse Reactions: Allergies Allergy/AdvReac Type Severity Reaction Status Date / Time No Known Allergies Allergy Verified 07/14/19 11:43 Home Medications: Ambulatory Orders Prenat 115/Iron Fum/Folic/Dss [ 19 Tablet] 1 each PO DAILY 09/02/18 *Physical Exam - Vital Signs Last Vital Signs Temp Pulse Resp BP Pulse Ox 98.2 F 83 16 123/78 99 07/14/19 11:06 07/14/19 11:06 07/14/19 11:06 07/14/19 11:06 07/14/19 11:06 <Marjorie Manzano - Last Filed: 07/14/19 16:13> - Vital Signs Last Vital Signs Temp Pulse Resp BP Pulse Ox 98.2 F 83 16 123/78 99 07/14/19 11:06 07/14/19 11:06 07/14/19 11:06 07/14/19 11:06 07/14/19 11:06 <Mahnaz Martinez - Last Filed: 07/14/19 17:59> ED Treatment Course - LABORATORY CBC & Chemistry Diagram: 07/14/19 11:40 <Marjorie Manzano - Last Filed: 07/14/19 16:13> - LABORATORY CBC & Chemistry Diagram: 07/14/19 11:40 - ADDITIONAL ORDERS Additional order review: Laboratory Results 07/14/19 07/14/19 07/14/19 11:40 11:40 11:40 PT with INR 12.20 INR 1.03 Beta HCG, Quant 4991.2 Blood Type O POSITIVE Antibody Screen Negative 07/14/19 11:40 RBC 3.80 MCV 90.2 MCHC 35.2 RDW 13.6 MPV 7.1 L D Neutrophils % 71.7 Lymphocytes % 23.8 Monocytes % 3.4 L Eosinophils % 0.6 Basophils % 0.5 <Mahnaz Martinez - Last Filed: 07/14/19 17:59> Medical Decision Making - Medical Decision Making 07/14/19 12:12 A/P: 29-year-old female with known ectopic and rising beta with new pelvic pain. Hemodynamically stable. -Repeat bhcg, pre-op labs -TV u/s -NPO -Ob paged 07/14/19 12:41 Bhcg 4991 07/14/19 15:[address] Painter covering Dr. Ramos. Will call back with u/s results: [phone]. 07/14/19 16:[address] Painter. Will give second dose methotrexate. Patient to follow up in office on Wednesday or return for worsening symptoms. Reviewed ED return precautions with patient. <Marjorie Manzano - Last Filed: 07/14/19 16:13> *DC/Admit/Observation/Transfer - Discharge Dispostion Decision to Admit order: No <Marjorie Manzano - Last Filed: 07/14/19 16:13> <Mahnaz Martinez - Last Filed: 07/14/19 17:59> Diagnosis at time of Disposition: Ectopic - Discharge Dispostion Disposition: HOME Condition at time of disposition: Stable - Referrals Referrals: Arely Garcia MD [Staff Physician] - (You must be seen on Wednesday for re- evaluation) - Patient Instructions Printed Discharge Instructions: DI for Ectopic Additional Instructions: -You were given a second dose of methotrexate for ectopic -You must be seen in the obstetrics office on Wednesday for re-evaluation -Return to the ER if you develop worsening pain or any other concerning symptoms , as this could be a sign of a life-threatening condition - Post Discharge Activity Forms/Work/School Notes: Back to Work
[2019-07-14 11:55] LABS: BASO % 0.5 % (0-2.0); EOS % 0.6 % (0-4.5); HEMATOCRIT 34.3 % (32.4-45.2); HEMOGLOBIN 12.1 GM/dL (10.7-15.3); LYMPH % 23.8 % (8-40); MCH 31.8 pg (25.7-33.7); MCHC 35.2 g/dl (32.0-36.0); MEAN CELL VOLUME 90.2 fl (80-96); MEAN PLT VOLUME 7.1 fl (7.5-11.1); MONO % 3.4 % (3.8-10.2); NEUT % 71.7 % (42.8-82.8); PLATELET COUNT 288 K/MM3 (134-434); RDW 13.6 % (11.6-15.6); WHITE BLOOD COUNT 6.8 K/mm3 (4.0-10.0)
[2019-07-14 12:18] LABS: INR 1.03 (0.83-1.09); PROTHROMBIN TIME (PATIENT) 12.2 SEC (9.7-13.0)
[2019-07-14] MEDS ORDERED: METHOTREXATE SODIUM/PF 25 MG/ML VIAL IM ONE (16:01)
== END 2019-07-14 18:03 | disposition home or self-care (01) ==
LOC: JER 10:41
PROC: 3E023GC Introduction of Other Therapeutic Substance into Muscle, Percutaneous Approach (ICD-10-PCS; principal; 2019-07-14)
DX: O26.891 Other specified pregnancy related conditions, first trimester (principal); O00.202 Left ovarian pregnancy without intrauterine pregnancy; Z3A.00 Weeks of gestation of pregnancy not specified; Z90.79 Acquired absence of other genital organ(s)
CPT/HCPCS: 36415; 76817-TC; 84702; 85025; 85610; 86850; 86900; 86901; 99282-25; J9260

== ENCOUNTER 2019-07-16 17:20 | Emergency (ER) | payer OTHER ==
[2019-07-16 17:27] VITALS: BMI 31.4
--- NOTE | 2019-07-16 19:42 | PDOC ---
History of Present Illness - General Chief Complaint: Pain Stated Complaint: PAIN Time Seen by Provider: 07/16/19 19:05 - History of Present Illness Initial Comments: 07/16/19 19:29 CHIEF COMPLAINT: ectopic HISTORY OF PRESENT ILLNESS: 29 yo A2 F with hx of ectopic 9 years ago (s/p R salpingectomy) with recent diagnosis another ectopic presents to ED with L pelvic pain. Patient has been given two doses of methotrexate (07/06,beta 5609 and 07/14, beta of 4991). Patient was to f/u with OB this upcoming Wednesday but patient returned for pain and because she does not believe the methotrexate is working. Patient denies any vaginal bleeding "other than when I'm having bowel movements." Patient notes she wants to avoid another surgery as she has not yet been able to have any children. Patient's OB is Janine Garcia. No recent travel or sick contacts. PAST MEDICAL HISTORY: ectopic FAMILY HISTORY: Denies SOCIAL HISTORY: Denies tobacco, alcohol, illicit drug use. SURGICAL HISTORY: Denies ALLERGIES: No known drug allergies REVIEW OF SYSTEMS General/Constitutional: Denies fever or chills. Denies weakness, weight change. HEENT: Denies change in vision. Denies ear pain or discharge. Denies sore throat. Cardiovascular: Denies chest pain or shortness of breath. Respiratory: Denies cough, wheezing, or hemoptysis. Gastrointestinal: L pelvic pain since yesterday. Denies nausea, vomiting, diarrhea or constipation. Denies rectal bleeding. Genitourinary: Denies dysuria, frequency, or change in urination. Musculoskeletal: Denies joint or muscle swelling or pain. Denies neck or back pain. Skin and breasts: Denies rash or easy bruising. Neurologic: Denies headache, vertigo, loss of consciousness, or loss of sensation. Psychiatric: Denies depression or anxiety. PHYSICAL EXAM General Appearance: Well-appearing, appropriately dressed. No apparent distress , no intoxication. HEENT: EOMI, PERRLA, normal ENT inspection, normal voice, TMs normal, pharynx normal. No conjunctival pallor. No photophobia, scleral icterus. Neck: Supple. Trachea midline. No tenderness, rigidity, carotid bruit, stridor , lymphadenopathy, or thyromegaly. Respiratory/Chest: Lungs CTAB. No shortness of breath, chest tenderness, respiratory distress, accessory muscle use. No crackles, rales, rhonchi, stridor , wheezing, dullness Cardiovascular: RRR. S1, S2. No JVD, murmur, bradycardia, tachycardia. Vascular Pulses: Dorsalis-Pedis (R): 2+, Dorsalis-Pedis (L): 2+ Gastrointestinal/Abdominal: L pelvic tenderness. Normal bowel sounds. Abdomen soft, non-distended. No tenderness or rebound tenderness. No organomegaly, pulsatile mass, guarding, hernia, hepatomegaly, splenomegaly. Lymphatic: No adenopathy, tenderness. Musculoskeletal/Extremities: Normal inspection. FROM of all extremities, normal capillary refill. Pelvis Stable. No CVA tenderness. No tenderness to extremities, pedal edema, swelling, erythema or deformity. Integumentary: Appropriate color, dry, warm. No cyanosis, erythema, jaundice or rash Neurologic: jet inspector II-XII intact. Fully oriented, alert. Appropriate mood/affect. Motor strength 5/5. No appreciable EOM palsy, facial droop or sensory deficit. Past History - Past Medical History Allergies/Adverse Reactions: Allergies Allergy/AdvReac Type Severity Reaction Status Date / Time No Known Allergies Allergy Verified 07/16/19 17:27 Home Medications: Ambulatory Orders Prenat 115/Iron Fum/Folic/Dss [ 19 Tablet] 1 each PO DAILY 09/02/18 Cephalexin [Keflex] 500 mg PO BID #14 capsule 07/16/19 COPD: No - Reproductive History (#): 4 Para: 0 Therapeutic (s) & number: No Spontaneous : 1 - Immunization History Immunization Up to Date: Yes - Suicide/Smoking/Psychosocial Hx Smoking History: Never smoked Have you smoked in the past 12 months: No Hx Alcohol Use: No Drug/Substance Use Hx: No Substance Use Type: Alcohol Abd/GI Specific PMHX - Complaint Specific PMHX Diverticulitis: No Gall Bladder Disease: No GERD: No *Physical Exam - Vital Signs Last Vital Signs Temp Pulse Resp BP Pulse Ox 98.1 F 79 18 122/76 99 07/16/19 17:24 07/16/19 17:24 07/16/19 17:24 07/16/19 17:24 07/16/19 17:24 ED Treatment Course - LABORATORY CBC & Chemistry Diagram: 07/16/19 19:45 07/16/19 19:45 - RADIOLOGY Radiology Studies Ordered: Category Date Time Status TRANSVAGINAL US PREG [US] Stat Ultrasound 07/16/19 19:28 Ordered Medical Decision Making - Medical Decision Making 07/16/19 22:00 29 yo A2 F with hx of ectopic 9 years ago (s/p R salpingectomy) with recent diagnosis another ectopic presents to ED with L pelvic pain. -labs, TVUS UA suggestive of UTI. Beta is trending down since 2 days ago to 3000s. TVUS shows similar sized structure suggestive of ectopic from 07/14. Will consult OB. Discussed case with on-call OB MD Painter, who states patient is stable to f/u on Wednesday given decreasing beta and non-surgical abdomen. Advised patient to take medication as prescribed and follow up with OB on Wednesday as planned. Advised patient of signs and symptoms for return to ED. Patient verbalized understanding and agrees to plan. *DC/Admit/Observation/Transfer Diagnosis at time of Disposition: Ectopic Qualifiers: Location of ectopic : ovarian Intrauterine status: without intrauterine Laterality: left Qualified Code(s): O00.202 - Left ovarian without intrauterine - Discharge Dispostion Disposition: HOME Condition at time of disposition: Stable Decision to Admit order: No - Prescriptions Prescriptions: Cephalexin [Keflex] 500 mg PO BID #14 capsule - Referrals Referrals: Arely Garcia MD [Staff Physician] - - Patient Instructions Printed Discharge Instructions: DI for Ectopic , DI for Urinary Tract Infection (UTI) Additional Instructions: Please take medications as prescribed for your UTI. As discussed, please follow up on Wednesday as planned in Dr. Garcia's office. If you develop worsening pain or any new or worsening symptoms, please return to the ER. - Post Discharge Activity
[2019-07-16 19:58] LABS: BASO % 0.7 % (0-2.0); EOS % 0.9 % (0-4.5); HEMATOCRIT 34.3 % (32.4-45.2); HEMOGLOBIN 11.7 GM/dL (10.7-15.3); LYMPH % 25.9 % (8-40); MEAN PLT VOLUME 7.3 fl (7.5-11.1); MONO % 2.9 % (3.8-10.2); NEUT % 69.6 % (42.8-82.8); PLATELET COUNT 278 K/MM3 (134-434); RBC 3.77 M/mm3 (3.60-5.2); WHITE BLOOD COUNT 9.6 K/mm3 (4.0-10.0)
[2019-07-16 20:09] LABS: EPI CELLS 8.3 /HPF (0-5/HPF); HYALINE CASTS 30 /lpf (0-8); URINE APPEARANCE CLOUDY; URINE BILIRUBIN NEGATIVE (NEGATIVE); URINE COLOR YELLOW; URINE GLUCOSE (UA) NEGATIVE (NEGATIVE); URINE KETONE NEGATIVE (NEGATIVE); URINE LEUK ESTERASE 2+ (NEGATIVE); URINE NITRITE NEGATIVE (NEGATIVE); URINE PROTEIN NEGATIVE (NEGATIVE); URINE RBC 9 /hpf (0-4); URINE WBC 124 /hpf (0-5)
[2019-07-16 20:25] LABS: ALBUMIN 3.6 g/dl (3.4-5.0); BILIRUBIN,TOTAL 0.6 mg/dL (0.2-1); BLOOD UREA NITROGEN 12.3 mg/dL (7-18); CALCIUM 9.1 mg/dL (8.5-10.1); CREATININE 0.7 mg/dL (0.55-1.3); POTASSIUM 3.6 mmol/L (3.5-5.1); TOT PROT 7.2 g/dl (6.4-8.2)
[2019-07-17 04:59] VITALS: BP 124/80; PULSE 89; TEMP 99.8
== END 2019-07-16 22:40 | disposition home or self-care (01) ==
LOC: JER 17:20
DX: O00.202 Left ovarian pregnancy without intrauterine pregnancy (principal); O26.891 Other specified pregnancy related conditions, first trimester; O23.41 Unspecified infection of urinary tract in pregnancy, first trimester; Z3A.00 Weeks of gestation of pregnancy not specified
CPT/HCPCS: 36415; 76817-TC; 80053; 81003; 84702; 85025; 86850; 86900; 86901; 99282-25

== ENCOUNTER 2019-07-27 22:21 | Emergency (ER) | payer OTHER ==
[2019-07-27 22:25] VITALS: TEMP 97.9; BMI 32.1
--- NOTE | 2019-07-27 22:27 | PDOC ---
History of Present Illness - General Chief Complaint: Pain, Acute Stated Complaint: ABD PAIN Time Seen by Provider: 07/27/19 22:26 - History of Present Illness Initial Comments: 07/27/19 22:51 29yo F A4 F (recent ectopic, ectopic 9yrs ago s/p R salpingectomy, first and second trimester miscarriages), recent medical for ectopic , and recent UTI presents from home c/o b/l pelvic pain radiating to genitalia x3hrs (start 2030), rapid onset, stabbing, intermittent, minimal improvement with 1g Tylenol (2 extra strengths) at 2200. similar to pain with prior UTI. Pt was in USOH yesterday. Endorses vaginal bleeding x1wk, filling 1 panty liner per day, occasionally blood clots, started a few days after second MTX dose, unchanging over 1wk, not associated with cramping or pain. Today pt went to her Terminal System Operator for labs and TVUS where she states she was told that there was still something on the TVUS but it looked different from prior and was probably just blood clots. Pt was asymptomatic at that time. Denies fever, chills, nausea, vomiting, dysuria, urinary frequency or urgency, hematuria, vaginal discharge, vaginal odor, blood in stool, diarrhea, constipation, fatigue , headache, dizziness, numbness/tingling, weakness, vision changes, shortness of breath, cough, chest pain, palpitations, leg swelling. Past History - Past Medical History Allergies/Adverse Reactions: Allergies Allergy/AdvReac Type Severity Reaction Status Date / Time No Known Allergies Allergy Verified 07/27/19 22:23 Home Medications: Ambulatory Orders Prenat 115/Iron Fum/Folic/Dss [ 19 Tablet] 1 each PO DAILY 09/02/18 Ibuprofen [Motrin -] 600 mg PO TID PRN #10 tablet 07/28/19 Nitrofurantoin Monohyd/M-Cryst [Macrobid -] 100 mg PO BID #14 capsule 07/28/19 COPD: No - Reproductive History (#): 4 Para: 0 Ectopic : Yes (s/p rt Salpingectomy 9 years ago) Therapeutic (s) & number: No Spontaneous : 1 - Immunization History Immunization Up to Date: Yes - Psycho Social/Smoking Cessation Hx Smoking History: Never smoked Have you smoked in the past 12 months: No Information on smoking cessation initiated: No Hx Alcohol Use: No Drug/Substance Use Hx: No Substance Use Type: Alcohol Review of Systems - Review of Systems Comments:: 07/27/19 23:40 Constitutional: Negative for chills, fever, fatigue HENT: Negative for sore throat. Eyes: Negative for visual disturbance. Respiratory: Negative for shortness of breath, cough. Cardiovascular: Negative for chest pain, palpitations, and leg swelling. Gastrointestinal: Positive for abdominal pain. Negative for blood in stool, constipation, diarrhea, nausea, and vomiting. Genitourinary: Positive for vaginal bleeding. Negative for dysuria, flank pain, and hematuria. Musculoskeletal: Negative for myalgias, back pain, and neck pain. Skin: Negative for rash. Neurological: Negative for light-headedness, dizziness, vertigo, syncope, weakness, numbness and headaches. Psychiatric/Behavioral: Negative for confusion. *Physical Exam - Vital Signs Last Vital Signs Temp Pulse Resp BP Pulse Ox 97.9 F 87 20 130/65 99 07/27/19 22:23 07/27/19 22:23 07/27/19 22:23 07/27/19 22:23 07/27/19 22:23 - Physical Exam Comments: 07/27/19 23:39 Gen: Alert, NAD, uncomfortable-appearing, hunching forward in pain HEENT: PERRL, EOMI, MMM, NCAT. No conjunctival pallor. Sclera are non-icteric. CV: Regular rate and rhythm. No murmurs, rubs, or gallops. PULM: No resp distress. CTAB, no wheezes, rales, or rhonchi. ABD: +diffuse lower abdomen TTP, soft, ND, no rebound tenderness or guarding, no CVA tenderness. BACK: No TTP of c/t/l-spine. No step-offs or deformities. MSK: No bony deformities. 2+ pulses in all extremities. NEURO: AAOx3. PERRL. No gross CN deficits. Strength and sensation grossly intact throughout. EXTREMITIES: No cyanosis. No clubbing. No edema. No calf tenderness. PSYCH: Normal mood and thought pattern. SKIN: Warm and dry. Normal capillary refill. No rashes. No jaundice. ED Treatment Course - LABORATORY CBC & Chemistry Diagram: 07/27/19 22:53 07/27/19 22:53 Medical Decision Making - Medical Decision Making 07/27/19 22:51 29yo F A4 F (recent ectopic, ectopic 9yrs ago s/p R salpingectomy, first and second trimester miscarriages), recent medical for ectopic , and recent UTI presents from home c/o b/l pelvic pain radiating to genitalia x3hrs (start 2030), rapid onset, stabbing, intermittent, minimal improvement with 1g Tylenol (2 extra strengths) at 2200. similar to pain with prior UTI. Pt was in USOH yesterday. Endorses vaginal bleeding x1wk, filling 1 panty liner per day, occasionally blood clots, started a few days after second MTX dose, unchanging over 1wk, not associated with cramping or pain. Today pt went to her Terminal System Operator for labs and TVUS where she states she was told that there was still something on the TVUS but it looked different from prior and was probably just blood clots. Pt was asymptomatic at that time. Pt finished her 7- day course of Cephalexin a few days ago, prescribed on 07/16/19, resolving sx. Denies fever, chills, nausea, vomiting, dysuria, urinary frequency or urgency, hematuria, vaginal discharge, vaginal odor, blood in stool, diarrhea, constipation, fatigue, headache, dizziness, numbness/tingling, weakness, vision changes, shortness of breath, cough, chest pain, palpitations, leg swelling. 06/27/19 - UTI treated with 7-day course antibiotics 07/06/19 - T&S O+, L ectopic diagnosed, beta 5609, MTX 50/m2 given (Pt wishes to avoid another surgery as she has not yet been able to have any children.) 07/14/19 - Ectopic still present, beta 4991, second dose MTX given 07/16/19 - UTI treated with 7-day Cephalexin BID, beta 3863 OB - Dr Janine Garcia. Hemodynamically stable, afebrile, diffuse tenderness to lower abdomen. Most likely UTI due to consistency of sx with prior UTI. Due to recent ectopic and medical , also concern for ectopic , retained products of conception, ovarian torsion, cyst - labs and TVUS. Also consider STI or PID, though of low concern due to negative STI testing 1mo ago, no new sexual partners, and lack of vaginal discharge or rash or lesions. Pt denies STI testing. -Labs: CBC, CMP, Coags, T&S, HCG, UA/UC -TVUS -Pelvic exam -Toradol for pain -Consult Dr Garcia - call placed -Dispo: pending w/u 07/27/19 22:[address] Porter (supervisor carbon paper coating for Dr Garcia) - due to new onset pain since TVUS today, recommended repeat TVUS. Unable to provide results of today's tests at this time. 07/27/19 23:15 Rocephin ordered for +UTI on UA and WBC elevation 11.6. 07/27/19 23:53 beta 665.7, down from 3863 on 07/16/19 07/28/19 00:35 Pelvic exam performed: External genitalia unremarkable. Dark red blood seen in vaginal vault. No discharge seen with speculum exam. Cervix visualized and is unremarkable (without any protruding material). Os feels open by finger. Bimanual exam without cervical motion tenderness, adnexal tenderness, or any masses appreciated. Swabs for testing for gonorrhea and chlamydia offered but pt denies. 07/28/19 01:36 TVUS read: Uterus and endometrial stripe appear normal. No intrauterine gestation noted. No large ovarian cysts. 3.7x2.3x1.8cm mass in L adnexa abutting the L ovary, presumably representing pt's known ectopic . Minimal free pelvic fluid. Incidental hepatic steatosis. Called Dr Porter - recommended to f/u at office today. Pain still present but improved, feels ready to go home. Will dc home with Macrobid, Motrin, and obstetrics gynecology physician f/u. Return precautions given. Pt understands all dc instructions and all questions were answered. Discharge - Discharge Information Problems reviewed: Yes Clinical Impression/Diagnosis: UTI (urinary tract infection), Ectopic Condition: Improved Disposition: HOME - Admission No - Additional Discharge Information Prescriptions: Ibuprofen [Motrin -] 600 mg PO TID PRN #10 tablet PRN Reason: Pain Nitrofurantoin Monohyd/M-Cryst [Macrobid -] 100 mg PO BID #14 capsule - Follow up/Referral Referrals: Brent Sosa [Primary Care Provider] - Arely Garcia MD [Staff Physician] - - Patient Discharge Instructions Patient Printed Discharge Instructions: DI for Urinary Tract Infection (UTI) Additional Instructions: You have been seen in the Emergency Department for abdominal pain and vaginal bleeding. Your labs indicate that you have a UTI (urinary tract infection). We have prescribed you Macrobid - take it as directed twice a day for 7 days with food or milk. Make sure you finish all the doses even if you feel better. We have also prescribed you Motrin for pain - take 600mg three times a day as needed for pain. Your labs and ultrasound show that your ectopic is resolving, as your beta-HCG value is decreasing. We have talked with Dr Porter , the Plumbing Engineer supervisor carbon paper coating for Dr Jose mena, and they want you to come to the office today for further evaluation. Call Dr Garcia's office in the morning to make an appointment for today. Return to the ED immediately if you experience worsening pain, dizziness, fever , vomiting, or any other new or worsening symptom. - Post Discharge Activity
[2019-07-27] MEDS ORDERED: SODIUM CHLORIDE 0.9% 1000 ML INFUS.BAG IV ONE (22:58)
[2019-07-27] MEDS ORDERED: KETOROLAC TROMETHAMINE 30 MG/1 ML VIAL IVPUSH ONE (22:58)
[2019-07-27] MEDS ORDERED: KETOROLAC TROMETHAMINE 30 MG/1 ML VIAL ONE (23:02)
[2019-07-27 23:09] LABS: BASO % 0.3 % (0-2.0); EOS % 0.2 % (0-4.5); EPI CELLS 7.2 /HPF (0-5/HPF); HEMATOCRIT 34.4 % (32.4-45.2); HEMOGLOBIN 11.7 GM/dL (10.7-15.3); LYMPH % 12.6 % (8-40); MCH 30.8 pg (25.7-33.7); MEAN CELL VOLUME 90.7 fl (80-96); MEAN PLT VOLUME 7.6 fl (7.5-11.1); MONO % 4.4 % (3.8-10.2); NEUT % 82.5 % (42.8-82.8); PH,URINE 6.5 (5.0-8.0); PLATELET COUNT 335 K/MM3 (134-434); RBC 3.79 M/mm3 (3.60-5.2); RDW 14.3 % (11.6-15.6); URINE APPEARANCE CLEAR; URINE BILIRUBIN NEGATIVE (NEGATIVE); URINE COLOR ORANGE; URINE GLUCOSE (UA) NEGATIVE (NEGATIVE); URINE KETONE TRACE (NEGATIVE); URINE LEUK ESTERASE 1+ (NEGATIVE); URINE NITRITE NEGATIVE (NEGATIVE); URINE PROTEIN 2+ (NEGATIVE); URINE RBC 102 /hpf (0-4); URINE WBC 9 /hpf (0-5); WHITE BLOOD COUNT 11.6 K/mm3 (4.0-10.0)
--- NOTE | 2019-07-27 23:13 | PDOC ---
Documentation entered by Pradip Brizuela SCRIBE, acting as scribe for Yadi Sparrow DO. Yadi Sparrow DO: This documentation has been prepared by the Gelacio major Daniel, SCRIBE, under my direction and personally reviewed by me in its entirety. I confirm that the documentation accurately reflects all work, treatment, procedures, and medical decision making performed by me. Attending Attestation - Resident Resident Name: Twila Mcneil - ED Attending Attestation I have performed the following: I have examined & evaluated the patient, The case was reviewed & discussed with the resident, I agree w/resident's findings & plan, Exceptions are as noted - HPI HPI: 07/27/19 22:49 The patient is a 29 year old with a past medical history of ectopic 9 years ago (s/p R salpingectomy) here today for evaluation of bilateral suprapubic pain. The patient has been seen multiple times in June for similar pain, was diagnosed with a left adnexal mass suggestive of ectopic , and was given methotrexate with outpatient OBGYN follow up. Patient reports that she saw her OBGYN today had TVUS (no heart beat) and labs. She reports that her bilateral suprapubic pain returned after seeing her OBGYN. She also notes some dysuria and passing small clots but otherwise denies vaginal discharge. Patient denies headache, lightheadedness. Denies fever, chills. Denies chest pain, shortness of breath. Denies nausea, vomiting, diarrhea. Allergies: NKA PCP: Brent Sosa OBGYN: Arely Garcia - Physicial Exam PE: 07/27/19 23:00 Constitutional: Awake, alert, oriented. In acute distress, almost hunched over due to pain. Head: Normocephalic. Atraumatic Eyes: PERRL. EOMI. Conjunctivae are not pale. ENT: Mucous membranes are moist and intact. Posterior pharynx without exudates or erythema. Uvula midline. Neck: Supple. Full ROM. No lymphadenopathy. Cardiovascular: Regular rate. Regular rhythm. S1, S2 regular. Distal pulses are 2+ and symmetric. Pulmonary/Chest: No evidence of respiratory distress. Clear to auscultation bilaterally No wheezing, rales or rhonchi. Abdominal: +tenderness in right lower quadrant, left lower quadrant, and suprapubic area. Soft and non-distended. No rebound, guarding or rigidity. No organomegaly. No palpable masses. Good bowel sounds. Back: No CVA tenderness. Musculoskeletal: No edema. No cyanosis. No clubbing. Full range of motion in all extremities. No calf tenderness. Radial/pedal pulses are intact and 2+ bilaterally Skin: Skin is warm and dry. No petechiae. No purpura. Neurological: Alert and oriented to person, place, and time. Cranial nerves II -XII are grossly intact. Normal speech. Strength is grossly symmetric. No sensory deficits. Able to ambulate. Psychiatric: Good eye contact. Normal interaction, affect and behavior. - Medical Decision Making 07/27/19 23:03 I, Dr. Yadi Sparrow, DO, attest that this document has been prepared under my direction and personally reviewed by me in its entirety. I further attest, that it accurately reflects all work, treatment, procedures and medical decision -making performed by me. a/p: 29yo female with hx of recent ectopic to L side with worsening abd pain tonight -pt states 2 doses of methotrexate at the end of june -has been bleeding since second dose of abx -states saw her CATERING TRUCK OPERATOR today and had an ultrasound and labs prior to the acute onset of pain -pt states she was told the "size was getting smaller" -pt states tonight out shopping and developed acute worsening of lower abd pain -also dysuria -pt with ttp across lower abd -will send labs, beta, tvus -resident discussed the case with Charlotte garcia who agrees with sending for tvus 07/27/19 23:30 hgb stable pt with uti rocephin ordered 07/28/19 00:14 beta 665 pain improved with toradol pending tvus read O+ on blood type 07/28/19 01:23 TVUS FINDINGS: The uterus and endometrial stripe appear normal. No intrauterine gestation is noted. No large ovarian cysts. *3.7 cm x 2.3 cm x 1.8 cm mass in left adnexa abutting the left ovary, presumably representing the patient's known ectopic . There is minimal free pelvic fluid. Incidental hepatic steatosis. 07/28/19 01:33 known small amount in L ovary beta is dropping discussed follow up with CATERING TRUCK OPERATOR and need to call tomorrow pain controlled uti culture pending will give macrobid stable for dc to home
[2019-07-27] MEDS ORDERED: CEFTRIAXONE 1 GM in DEXTROSE 5%-WATER - 100 ML IVPB ONE (23:14)
[2019-07-27 23:48] LABS: BILIRUBIN,TOTAL 0.4 mg/dL (0.2-1); BLOOD UREA NITROGEN 8.8 mg/dL (7-18); CALCIUM 9.3 mg/dL (8.5-10.1); CREATININE 0.7 mg/dL (0.55-1.3); POTASSIUM 3.8 mmol/L (3.5-5.1); TOT PROT 7.7 g/dl (6.4-8.2)
[2019-07-28 00:09] LABS: HYALINE CASTS 2 /lpf (0-8)
[2019-07-28 02:06] VITALS: BP 128/80; PULSE 86
== END 2019-07-28 02:01 | disposition home or self-care (01) ==
LOC: JER 22:21
PROC: 3E03329 Introduction of Other Anti-infective into Peripheral Vein, Percutaneous Approach (ICD-10-PCS; principal; 2019-07-27)
PROC: 3E0333Z Introduction of Anti-inflammatory into Peripheral Vein, Percutaneous Approach (ICD-10-PCS; 2019-07-27)
DX: N39.0 Urinary tract infection, site not specified (principal); O00.202 Left ovarian pregnancy without intrauterine pregnancy
CPT/HCPCS: 36415; 76817-TC; 80053; 81003; 84702; 85025; 85730; 86850; 86900; 86901; 99283-25; J7030

== ENCOUNTER 2020-09-10 15:10 | Emergency (ER) | payer OTHER ==
[2020-09-10] MEDS ORDERED: ACETAMINOPHEN 325 MG TABLET (FP) PO ONE (15:22)
[2020-09-10 15:25] VITALS: BP 131/90; PULSE 90; BMI 32.3
[2020-09-10] MEDS ORDERED: ACETAMINOPHEN 325 MG TABLET (FP) ONE (15:38)
[2020-09-10 15:49] LABS: BASO % 0.6 % (0-2.0); EOS % 0.6 % (0-4.5); HEMATOCRIT 37.9 % (32.4-45.2); HEMOGLOBIN 13.3 GM/dL (10.7-15.3); LYMPH % 27.9 % (8-40); MCH 31.2 pg (25.7-33.7); MEAN CELL VOLUME 89.2 fl (80-96); MEAN PLT VOLUME 7.7 fl (7.5-11.1); MONO % 4.2 % (3.8-10.2); NEUT % 66.7 % (42.8-82.8); PLATELET COUNT 297 K/MM3 (134-434); RBC 4.25 M/mm3 (3.60-5.2); RDW 12.9 % (11.6-15.6); WHITE BLOOD COUNT 8.6 K/mm3 (4.0-10.0)
[2020-09-10 16:09] LABS: HCG,QUALITATIVE URINE Positive
[2020-09-10 16:11] LABS: EPI CELLS 28 /uL (0-25.1); HYALINE CASTS 2 /uL (0-3.1); URINE APPEARANCE CLEAR; URINE BACTERIA 554 /uL (0-1359); URINE BILIRUBIN NEGATIVE (NEGATIVE); URINE COLOR YELLOW; URINE GLUCOSE (UA) TRACE (NEGATIVE); URINE KETONE NEGATIVE (NEGATIVE); URINE LEUK ESTERASE NEGATIVE (NEGATIVE); URINE NITRITE NEGATIVE (NEGATIVE); URINE PROTEIN NEGATIVE (NEGATIVE); URINE RBC 5 /uL (0-23.9); URINE UROBILINOGEN 0.2 mg/dL (0.2-1.0); URINE WBC 16 /uL (0-25.8)
[2020-09-10 16:15] LABS: BLOOD UREA NITROGEN 8.3 mg/dL (7-18); CALCIUM 9.4 mg/dL (8.5-10.1)
[2020-09-10 16:19] LABS: CREATININE 0.8 mg/dL (0.55-1.3)
== END 2020-09-10 17:40 | disposition home or self-care (01) ==
LOC: JER 15:10
DX: O20.0 Threatened abortion (principal); N30.00 Acute cystitis without hematuria
CPT/HCPCS: 76817-TC; 80048; 81003; 84702; 84703; 85025; 86850; 86900; 86901; 87086; 87186; 99284-25

== ENCOUNTER 2020-09-16 16:51 | Emergency (ER) | payer OTHER ==
[2020-09-16 16:58] VITALS: TEMP 98.2; BMI 32.8
[2020-09-16 17:54] LABS: BASO % 0.4 % (0-2.0); EOS % 0.6 % (0-4.5); HEMOGLOBIN 12.1 GM/dL (10.7-15.3); LYMPH % 26.6 % (8-40); MCH 31.2 pg (25.7-33.7); MCHC 34.5 g/dl (32.0-36.0); MEAN CELL VOLUME 90.4 fl (80-96); MEAN PLT VOLUME 7.9 fl (7.5-11.1); MONO % 4.5 % (3.8-10.2); NEUT % 67.9 % (42.8-82.8); PLATELET COUNT 275 K/MM3 (134-434); RBC 3.87 M/mm3 (3.60-5.2); WHITE BLOOD COUNT 8.9 K/mm3 (4.0-10.0)
[2020-09-16 18:02] LABS: INR 0.99 (0.83-1.09); PROTHROMBIN TIME (PATIENT) 12.2 SEC (9.7-13.0)
[2020-09-16 18:04] LABS: ACTIVATED PTT 32.1 SECONDS (25.2-36.5)
[2020-09-16 18:14] LABS: POTASSIUM 3.8 mmol/L (3.5-5.1)
[2020-09-16 18:15] LABS: CALCIUM 9.1 mg/dL (8.5-10.1)
[2020-09-16 18:16] LABS: ALBUMIN 3.7 g/dl (3.4-5.0); BLOOD UREA NITROGEN 11.3 mg/dL (7-18)
[2020-09-16 18:19] LABS: CREATININE 0.7 mg/dL (0.55-1.3)
[2020-09-16 18:21] LABS: BILIRUBIN,TOTAL 0.6 mg/dL (0.2-1); TOT PROT 7.8 g/dl (6.4-8.2)
[2020-09-16] MEDS ORDERED: METHOTREXATE SODIUM/PF 25 MG/ML VIAL IM ONE (21:12)
[2020-09-16 21:45] VITALS: BP 126/82; PULSE 80
== END 2020-09-16 21:45 | disposition home or self-care (01) ==
LOC: JER 16:51
PROC: 3E023GC Introduction of Other Therapeutic Substance into Muscle, Percutaneous Approach (ICD-10-PCS; principal; 2020-09-16)
DX: O00.102 Left tubal pregnancy without intrauterine pregnancy (principal)
CPT/HCPCS: 36415; 76817-TC; 80053; 84702; 85025; 85610; 85730; 86850; 86900; 86901; 99284-25; J9260

== ENCOUNTER 2021-10-29 17:44 | Emergency (ER) | payer OTHER ==
[2021-10-29 18:15] VITALS: BP 146/87; PULSE 86; TEMP 98.2; BMI 31.7
[2021-10-30 18:07] LABS: SARS-CoV-2 NAA Not Detected (Not Detected)
== END 2021-10-29 19:23 | disposition home or self-care (01) ==
LOC: JER 17:44
DX: R05.1 Acute cough (principal)
CPT/HCPCS: 71046-TC-FY; 87804; 99284-25; C9803; U0003; U0005

== ENCOUNTER 2022-01-17 11:16 | Emergency (ER) | payer OTHER ==
[2022-01-17 11:39] VITALS: BP 113/67; PULSE 77; TEMP 97.9; BMI 30.8
[2022-01-17 12:56] LABS: BASO % 0.4 % (0-2.0); EOS % 1.7 % (0-4.5); HEMOGLOBIN 13.1 GM/dL (10.7-15.3); LYMPH % 22.9 % (8-40); MCH 31.7 pg (25.7-33.7); MCHC 35.4 g/dl (32.0-36.0); MEAN CELL VOLUME 89.6 fl (80-96); MEAN PLT VOLUME 7.5 fl (7.5-11.1); MONO % 4.2 % (3.8-10.2); NEUT % 70.8 % (42.8-82.8); PLATELET COUNT 316 10^3/uL (134-434); RBC 4.13 M/mm3 (3.60-5.2); RDW 13.2 % (11.6-15.6); WHITE BLOOD COUNT 9.7 K/mm3 (4.0-10.0)
[2022-01-17 13:10] LABS: CALCIUM 9.1 mg/dL (8.5-10.1)
[2022-01-17 13:14] LABS: CREATININE 0.6 mg/dL (0.55-1.3)
[2022-01-17 15:08] LABS: EPI CELLS 22 /uL (0-25.1); HYALINE CASTS 2 /uL (0-3.1); PH,URINE 6.5 (5.0-8.0); URINE APPEARANCE CLEAR; URINE BACTERIA 42 /uL (0-1359); URINE BILIRUBIN NEGATIVE (NEGATIVE); URINE COLOR YELLOW; URINE GLUCOSE (UA) NEGATIVE (NEGATIVE); URINE KETONE NEGATIVE (NEGATIVE); URINE LEUK ESTERASE NEGATIVE (NEGATIVE); URINE NITRITE NEGATIVE (NEGATIVE); URINE PROTEIN NEGATIVE (NEGATIVE); URINE RBC 253 /uL (0-23.9); URINE UROBILINOGEN 0.2 mg/dL (0.2-1.0); URINE WBC 4 /uL (0-25.8)
== END 2022-01-17 16:34 | disposition home or self-care (01) ==
LOC: JER 11:16
DX: O03.9 Complete or unspecified spontaneous abortion without complication (principal)
CPT/HCPCS: 36415; 76817-TC; 80048; 81003; 84702; 85025; 86850; 86900; 86901; 87086; 99284-25

== ENCOUNTER 2022-05-25 17:18 | Inpatient (IN) | payer OTHER ==
[2022-05-25] MEDS ORDERED: BETAMET ACET/BETAMET NA PH 30 MG/5 ML VIAL IM SCH (18:15)
[2022-05-25] MEDS ORDERED: SODIUM CHLORIDE 1,000 ML IV SCH (18:15)
[2022-05-25 18:40] VITALS: BMI 31.4
[2022-05-25 20:01] LABS: BASO % 0.3 % (0-2.0); EOS % 0.6 % (0-4.5); HEMOGLOBIN 10.9 GM/dL (10.7-15.3); LYMPH % 18.9 % (8-40); MCH 30.5 pg (25.7-33.7); MCHC 35.2 g/dl (32.0-36.0); MEAN CELL VOLUME 86.6 fl (80-96); MONO % 4.8 % (3.8-10.2); NEUT % 75.4 % (42.8-82.8); PLATELET COUNT 235 10^3/uL (134-434); RBC 3.58 M/mm3 (3.60-5.2); WHITE BLOOD COUNT 9.5 K/mm3 (4.0-10.0)
[2022-05-25 20:12] LABS: INR 1.06 (0.83-1.09); PROTHROMBIN TIME (PATIENT) 12.2 SEC (9.7-13.0)
[2022-05-25 20:14] LABS: ACTIVATED PTT 33.7 SECONDS (25.2-36.5)
[2022-05-25] MEDS ORDERED: BETAMET ACET/BETAMET NA PH 30 MG/5 ML VIAL ONE (20:14)
[2022-05-25 20:26] VITALS: RESP 18
[2022-05-25 20:33] LABS: BLOOD UREA NITROGEN 7.1 mg/dL (7-18)
[2022-05-25 20:36] LABS: CREATININE 0.4 mg/dL (0.55-1.3)
[2022-05-25 22:16] VITALS: BP 111/63; PULSE 83; TEMP 97.5
== END 2022-05-25 22:20 | disposition short-term general hospital (02) | DRG 566 ==
LOC: JLDR 17:18
PROVIDERS: ADMIT Obstetrics & Gynecology; ATTEND Obstetrics & Gynecology
DX: O34.32 Maternal care for cervical incompetence, second trimester (principal); O99.820 Streptococcus B carrier state complicating pregnancy; Z3A.26 26 weeks gestation of pregnancy
CPT/HCPCS: 36415; 80048; 82962; 85025; 85610; 85730; 86850; 86900; 86901; 87340; 96372; C9803-CS; U0003; U0005

== ENCOUNTER 2024-01-03 06:40 | Inpatient (IN) | payer OTHER ==
[2024-01-03] MEDS: ELECTROLYTE-148 SOLN 500 ML IV SCH (07:45)
[2024-01-03] MEDS: CITRIC ACID/SODIUM CITRATE 30 ML UNIT-DOSE CUP PO ONE (08:15)
[2024-01-03] MEDS ORDERED: FENTANYL CITRATE/PF 50 MCG/ML VIAL ONE (08:20)
[2024-01-03] MEDS ORDERED: morphine SULFATE/PF 1 MG/2 ML (2cc Syringe - QUVA) ONE (08:20)
[2024-01-03 08:31] VITALS: BMI 33.7
[2024-01-03] MEDS ORDERED: ceFAZolin SODIUM 1 GM VIAL ONE (09:33)
[2024-01-03] MEDS ORDERED: PHENYLEPHRINE HCL 10 MG/1 ML SINGLE DOSE VIAL ONE (09:33)
[2024-01-03] MEDS ORDERED: ONDANSETRON 4 MG/2 ML VIAL ONE (09:33)
[2024-01-03] MEDS ORDERED: KETOROLAC TROMETHAMINE 30 MG/1 ML VIAL ONE (09:33)
[2024-01-03] MEDS ORDERED: OXYTOCIN 10 UNITS/ML VIAL ONE (09:33)
[2024-01-03] MEDS ORDERED: KETAMINE HCL 200 MG/20 ML VIAL ONE (10:15)
[2024-01-03 10:43] LABS: CORD HCO3 21.7 mmHg (20-29); CORD PCO2 56.5 mmHg (30-78); CORD pH 7.202 (7.14-7.44)
[2024-01-03 10:44] LABS: CORD BASE EXCESS -5.6 mmol/L (0-2); CORD HCO3 22.2 mmHg (20-29); CORD PCO2 51.5 mmHg (30-78); CORD pH 7.252 (7.14-7.44)
[2024-01-03] MEDS ORDERED: METHYLERGONOVINE MALEATE 0.2 MG/1 ML AMP IM PRN (10:48)
[2024-01-03] MEDS ORDERED: OXYTOCIN 20 UNITS in 0.9% NS 20 UNIT/1,000 ML INFUS.BAG IV ONE (11:03)
[2024-01-03] MEDS ORDERED: ACETAMINOPHEN INJECTION 100 ML IVPB ONE (11:03)
[2024-01-03] MEDS: ACETAMINOPHEN 1000 MG/100 ML BAG IVPB ONE (11:05)
[2024-01-03] MEDS: OXYTOCIN 20 UNITS in 0.9% NS 20 UNIT/1,000 ML INFUS.BAG IV SCH (11:05)
[2024-01-03] MEDS ORDERED: ONDANSETRON 4 MG/2 ML VIAL IVPUSH PRN (11:56)
[2024-01-03] MEDS: ENOXAPARIN NA (PORCINE) 40 MG/0.4 ML DISP.SYRIN SQ SCH (13:09)
[2024-01-03] MEDS: morphine SULFATE/PF 1 MG/2 ML (2cc Syringe - QUVA) IT ONE (21:55)
[2024-01-03] MEDS ORDERED: oxyCODONE HCL 5 MG TABLET PO PRN ×2 (22:48)
[2024-01-04] MEDS: IBUPROFEN 800 MG/8 ML IJ IVPB PRN (02:19)
[2024-01-04 07:11] LABS: BASO % 0.3 % (0-2.0); EOS % 0.3 % (0-4.5); HEMATOCRIT 27.1 % (32.4-45.2); HEMOGLOBIN 9.2 GM/dL (10.7-15.3); LYMPH % 17.4 % (8-40); MCH 30.3 pg (25.7-33.7); MCHC 33.9 g/dl (32.0-36.0); MEAN CELL VOLUME 89.5 fl (80-96); MEAN PLT VOLUME 8.2 fl (7.5-11.1); MONO % 6.5 % (3.8-10.2); NEUT % 75.5 % (42.8-82.8); PLATELET COUNT 183 10^3/uL (134-434); RBC 3.02 M/mm3 (3.60-5.2); RDW 17.8 % (11.6-15.6); WHITE BLOOD COUNT 6.1 K/mm3 (4.0-10.0)
[2024-01-04] MEDS: IBUPROFEN 600 MG TABLET (FP) PO PRN (08:53)
[2024-01-04] MEDS: SIMETHICONE 80 MG TAB.CHEW (FP) PO PRN (08:53)
[2024-01-04] MEDS: PRENATAL VITAMINS W/ FOLIC ACID TABLET (FP) PO SCH (09:47)
[2024-01-04] MEDS ORDERED: BISACODYL 10 MG SUPP.RECT RC PRN (10:48)
[2024-01-04] MEDS: ELECTROLYTE-148 SOLN 1,000 ML IV SCH (19:22)
[2024-01-05] MEDS: ACETAMINOPHEN 325 MG TABLET (FP) PO PRN (18:29)
[2024-01-05 22:02] VITALS: RESP 18
[2024-01-06 07:51] LABS: BASO % 0.5 % (0-2.0); EOS % 2.1 % (0-4.5); HEMATOCRIT 25.5 % (32.4-45.2); HEMOGLOBIN 8.8 GM/dL (10.7-15.3); LYMPH % 23.6 % (8-40); MCH 31.2 pg (25.7-33.7); MCHC 34.4 g/dl (32.0-36.0); MEAN CELL VOLUME 90.5 fl (80-96); MEAN PLT VOLUME 7.6 fl (7.5-11.1); MONO % 6.1 % (3.8-10.2); NEUT % 67.7 % (42.8-82.8); PLATELET COUNT 212 10^3/uL (134-434); RBC 2.82 M/mm3 (3.60-5.2); RDW 17.8 % (11.6-15.6); WHITE BLOOD COUNT 5.7 K/mm3 (4.0-10.0)
[2024-01-06 10:13] VITALS: BP 129/84; PULSE 73; TEMP 98
== END 2024-01-06 13:00 | disposition home or self-care (01) | DRG 540 ==
LOC: JERBED 06:40 → JLDR 07:17 → J3W 13:18
PROVIDERS: ADMIT Obstetrics & Gynecology; ATTEND Obstetrics & Gynecology
PROC: 10D00Z1 Extraction of Products of Conception, Low, Open Approach (ICD-10-PCS; principal; 2024-01-03)
PROC: 0DN80ZZ Release Small Intestine, Open Approach (ICD-10-PCS; 2024-01-03)
DX: O34.212 Maternal care for vertical scar from previous cesarean delivery (principal); O99.62 Diseases of the digestive system complicating childbirth; N85.8 Other specified noninflammatory disorders of uterus; K56.50 Intestinal adhesions [bands], unspecified as to partial versus complete obstruction; Z3A.37 37 weeks gestation of pregnancy; Z37.0 Single live birth
CPT/HCPCS: 36415; 36600; 80048; 82803; 82962; 85025; 85610; 85730; 86780; 86850; 86900; 86901; 88307-TC; J0131